=== PATIENT | male | born 1965 | race Caucasian/White ===

== ENCOUNTER 2020-10-19 01:58 | Emergency (ER) | payer SELFPAY ==
[2020-10-19 02:05] VITALS: BP 125/67; PULSE 69; RESP 18; TEMP 36.6; O2SAT 98; BMI 33.0
--- NOTE | 2020-10-19 02:27 | DI.RAD.S_ITS ---
PROCEDURE: XR KNEE RT 3V INDICATIONS: pain and swelling,unknown injury TECHNIQUE: 3 views of the knee were acquired. COMPARISON: [facility], , KNEE 3V RIGHT, 01/26/2012, 14:16. FINDINGS: Bones: No fractures or dislocations. There is mild joint space narrowing in the medial compartment. No suspicious bony lesions. Soft tissues: There is increased prepatellar soft tissue swelling. No joint effusion. No suspicious soft tissue calcifications. IMPRESSION: 1. No fracture or dislocation. 2. Mild joint space narrowing in the medial compartment. 3. Prepatellar soft tissue swelling is nonspecific and the differential includes a soft tissue contusion or bursitis. Dictated by: Nomi West M.D. on 10/19/2020 at 8:57 Approved by: Nomi West M.D. on 10/19/2020 at 9:06
--- NOTE | 2020-10-19 03:07 | ED.LOWEXIN ---
HPI - Extremity Injury (Lower) General Chief Complaint: Extremity Injury, Lower Stated Complaint: right knee pain, feels on fire Time Seen by Provider: 10/19/20 02:08 Source: patient Mode of arrival: Wheelchair Limitations: no limitations History of Present Illness HPI Narrative: 55-year-old gentleman with a history of hypothyroidism presents with acute right prepatellar knee pain. He notes that his knee was somewhat bothering him before he went to bed but it woke him from sleep with severe pain, swelling and inability find a comfortable position. He describes no fevers or chills, no redness and no specific trauma. He does note that today he was doing quite a bit of work on his knees laying in a [employer] system. He has never had similar problems previously. Related Data Previous Rx's Medication Instructions Recorded naproxen [Naprosyn] 500 mg PO BIDCC #30 tab 05/05/17 loratadine 10 mg capsule 10 mg PO DAILY #90 cap 11/09/17 levothyroxine 150 mcg PO QDAY #90 tab 06/03/18 oxycodone-acetaminophen 1 tab PO Q6H PRN 3 Days #10 tab 10/19/20 Allergies Allergy/AdvReac Type Severity Reaction Status Date / Time No Known Allergies Allergy Uncoded 09/16/17 11:52 Review of Systems Review of Systems Narrative: Remainder of complete review of systems is otherwise unremarkable except for that included in the HPI. Patient History Medical History Allergic rhinitis Hypothyroidism Smokeless tobacco use (07/12/13) Thoracic outlet syndrome Surgical History History of arthroscopy History of carpal tunnel repair Social History Smoking Status: Former smoker Smoking Status: Former smoker alcohol intake frequency: a few times a month Substance Use Type: does not use Exam Narrative Exam Narrative: General: Alert appropriate in no acute distress Respiratory: Able to speak in full sentences, no obvious respiratory distress Skin: No obvious rashes, warm and dry Neurologic: Grossly intact no obvious asymmetries or abnormalities Psych: appropriate insight and affect, cooperative Extremity: Right knee with prepatellar effusion, he is able to extend the knee to 170? and flex to 60?. There is no warmth or redness to the skin and no obvious skin breakdown. No calf tenderness knees neurovascularly intact otherwise Initial Vital Signs Initial Vital Signs: Vital Signs Temperature 98 F 10/19/20 02:05 Pulse Rate 69 10/19/20 02:05 Respiratory Rate 18 10/19/20 02:05 Blood Pressure 125/67 10/19/20 02:05 Pulse Oximetry 98 10/19/20 02:05 Course Orders Ordered: ED Orders 10/19/20 02:27 XR knee RT 3V Stat Discontinued Medications Ketorolac Tromethamine (Ketorolac 30 Mg/Ml Vial) 30 mg IM NOW ONE Stop: 10/19/20 03:05 Oxycodone/Acetaminophen (Oxycodone/Apap 5/325 Prepack) 1 bottle MISC SEEINSTR ONE Stop: 10/19/20 03:05 Vital Signs Vital signs: Vital Signs - 8 hr 10/19/20 02:05 Temperature 98 F Pulse Rate 69 Respiratory Rate 18 Blood Pressure 125/67 Pulse Oximetry 98 MDM - Extremity Injury (Lower) Imaging Data X-ray right knee: Attestation: I personally reviewed and interpreted this imaging study as follows: My Impression: No acute bony injury MDM Narrative Medical decision making narrative: 55-year-old gentleman with acute right knee pain with ligamentous stability but tenderness over the prepatellar bursa. X-ray is unremarkable. He does have a history of crawling on his knees to place a sprinkler system today. We talked about using anti-inflammatory medications, anticipated course of resolution and probable similar to increase level of pain over the next 24-48 hours. Reviewed signs and symptoms of septic arthritis, which he does not have at this time, and reasons to return to the emergency department. He is safe for home discharge at this time Discharge Plan Departure Patient Disposition: Home Clinical Impression: Bursitis, prepatellar, right Instructions: DI for Bursitis Activity Restrictions/Additional Instructions: Thank you for coming in today You do not have cellulitis or infection inside her knee. There is no broken bones and no ligamentous damage. You do have bursitis. This is affecting the bursa just on top of your knee cap and why it hurts some much to bend your knee completely or streaking your knee completely. In the emergency room your given a shot of Toradol which is similar to ibuprofen. Using 400 mg of ibuprofen (2 [id number] pills) and 1 Tylenol every 6 hours can be very helpful in controlling pain. For severe pain using to ibuprofen and 1 Percocet can be helpful. Use ice or heat to figure out which helps most with your specific pain level. You will not injury your knee by walking on it but you may find that you more comfortable with that elevated. If he noticed fevers, redness or any type of drainage this would be very unusual and should be re-evaluated. Prescriptions: New oxycodone-acetaminophen 5-325 mg tablet 1 tab PO Q6H PRN (Reason: pain) 3 Days Qty: 10 RF: 0 No Action naproxen [Naprosyn] 500 MG tablet 500 mg PO BIDCC Qty: 30 RF: 0 levothyroxine 150 mcg tablet 150 mcg PO QDAY Qty: 90 RF: 0 loratadine 10 mg capsule 10 mg PO DAILY Qty: 90 RF: 1 Referrals: Irina Naranjo DO [Primary Care Provider] -
[2020-10-19] MEDS: KETOROLAC 30 MG/ML VIAL IM (03:22)
[2020-10-19] MEDS: OXYCODONE/APAP 5/325 PREPACK 1 BOTTLE MISC (03:22)
[2020-10-19 03:27] VITALS: BP 131/61; PULSE 72; RESP 18; O2SAT 98
== END 2020-10-19 03:38 | disposition home or self-care (01) ==
PROVIDERS: Emergency Provider Emergency Medicine; Family Provider Family Medicine; PCP Family Medicine
DX: M70.41 Prepatellar bursitis, right knee (principal)
CPT/HCPCS: 73562; 96372; 99283; J1885

== ENCOUNTER 2022-07-31 19:05 | Emergency (ER) | payer OTHER, SELFPAY ==
[2022-07-31 19:20] VITALS: BP 154/90; PULSE 85; RESP 20; TEMP 36.4; O2SAT 99; BMI 34.4
--- NOTE | 2022-07-31 21:21 | ED.NAVMDI ---
HPI - Nausea/Vomiting/Diarrhea General Chief complaint: Nausea/Vomiting/Diarrhea Stated complaint: vomiting, bloody stool, abd pain Time Seen by Provider: 07/31/22 21:17 Source: patient Mode of arrival: Ambulatory Limitations: no limitations History of Present Illness HPI Narrative: Patient is a 57-year-old male who is here for evaluation of approximately 12 hours nausea vomiting and diarrhea. Is also having abdominal pain related to the vomiting diarrhea. No recent travel. No recent antibiotics. Has not tried anything for the symptoms. He states that he thinks that his stool has some blood in but is not exactly sure. He is not having any fevers. He also states last couple times he is vomit he thought that there was blood in his vomitus as well. Related Data Previous Rx's Medication Instructions Recorded naproxen 500 mg tablet (Naprosyn) 500 mg PO BIDCC #30 tabs 05/05/17 loratadine 10 mg capsule 10 mg PO DAILY #90 caps 11/09/17 levothyroxine 150 mcg tablet 150 mcg PO QDAY #90 tabs 06/03/18 Allergies Allergy/AdvReac Type Severity Reaction Status Date / Time No Known Allergies Allergy Uncoded 07/31/22 19:26 Review of Systems Constitutional Constitutional: Reports system reviewed and no additional complaints, except as documented Respiratory Respiratory: Reports system reviewed and no additional complaints, except as documented Gastrointestinal Gastrointestinal: Reports system reviewed and no additional complaints, except as documented Musculoskeletal Musculoskeletal: Reports system reviewed and no additional complaints, except as documented Hematologic/Lymphatic On Anticoagulants: No Patient History Medical History Allergic rhinitis Hypothyroidism Smokeless tobacco use (07/12/13) Thoracic outlet syndrome Surgical History History of arthroscopy History of carpal tunnel repair Social History Smoking Status: Former smoker Smoking Status: Former smoker alcohol intake frequency: a few times a month Substance Use Type: does not use Exam Initial Vital Signs Initial Vital Signs: Vital Signs Temperature 97.5 F L 07/31/22 19:20 Pulse Rate 85 07/31/22 19:20 Respiratory Rate 20 07/31/22 19:20 Blood Pressure 154/90 H 07/31/22 19:20 Pulse Oximetry 99 02/23/23 19:20 Oxygen Delivery Method 07/31/22 19:20 HENMT Head: normal to inspection and normocephalic Resp Effort & Inspection: normal respiratory effort Cardio Rate: regular rate GI Inspection: normal to inspection Course Orders Ordered: Discontinued Medications Ondansetron HCl (Ondansetron 4 Mg Odt) 4 mg SL NOW ONE Stop: 07/31/22 21:22 Last Admin: 07/31/22 21:29 Dose: 4 mg Documented By: LES Ondansetron HCl (Ondansetron 4 Mg Odt Prepack) 1 bottle MISC SEEINSTR ONE Stop: 07/31/22 22:22 Last Admin: 07/31/22 22:31 Dose: 1 bottle Documented By: LES Vital Signs Vital signs: Vital Signs - 8 hr 07/31/22 19:20 07/31/22 22:27 Temperature 97.5 F L Pulse Rate 85 66 Respiratory Rate 20 18 Blood Pressure 154/90 H 117/74 Pulse Oximetry 99 95 Oxygen Delivery Method Room Air Room Air MDM - Nausea/Vomiting/Diarrhea MDM Narrative Medical decision making narrative: Normal vital signs, benign exam, after Zofran patient tolerated oral intake. I suspect that the potential blood in his vomitus is Ina-Nye. No indication for any radiologic studies. Patient is not tachycardic. No indication for antibiotics. He was given return precautions. He expressed understanding and agreement Discharge Plan Departure Patient Disposition: Home Clinical Impression: Nausea vomiting and diarrhea Instructions: Diarrhea, Nausea and Vomiting-Adult Activity Restrictions/Additional Instructions: I do recommend you use the nausea medication as needed. Increase your fluid intake by drinking small amounts at a time and advancing it as tolerated. Also recommend a bland diet that you can advance as tolerated. Return to the emergency department for new or worsening symptoms. Prescriptions: No Action naproxen [Naprosyn] 500 MG tablet 500 mg PO BIDCC Qty: 30 0RF levothyroxine 150 mcg tablet 150 mcg PO QDAY Qty: 90 0RF loratadine 10 mg capsule 10 mg PO DAILY Qty: 90 1RF Referrals: Irina Naranjo DO [Primary Care Provider] - Stand Alone Forms: Patient Portal/API
[2022-07-31] MEDS: ONDANSETRON 4 MG ODT SL (21:29)
[2022-07-31 22:27] VITALS: BP 117/74; PULSE 66; RESP 18; O2SAT 95
[2022-07-31] MEDS: ONDANSETRON 4 MG ODT PREPACK 1 BOTTLE MISC (22:31)
--- NOTE | 2022-07-31 22:35 | PC.NURSE ---
During my assessment pt reports feeling nauseous for past few hours. states has thrown up 5 times. denied any difficulty with bowel movements.
== END 2022-07-31 22:38 | disposition home or self-care (01) ==
PROVIDERS: Emergency Provider Emergency Medicine; Family Provider Family Medicine; PCP Family Medicine
DX: R11.2 Nausea with vomiting, unspecified (principal); R19.7 Diarrhea, unspecified
CPT/HCPCS: 99283

== ENCOUNTER 2022-11-16 22:03 | Emergency (ER) | payer OTHER, SELFPAY ==
[2022-11-16 22:18] VITALS: BP 122/88; PULSE 59; RESP 16; TEMP 36.3; O2SAT 98; BMI 32.5
[2022-11-17] VITALS (7 sets, daily range): BP systolic 131–155; BP diastolic 73–90; PULSE 49–56; RESP 15–23; O2SAT 98–100
[2022-11-17 00:36] LABS: Add Manual Diff / Slide Review NO; Basophils Absolute Auto 100 /uL (0-100); Basophils Percent Auto 0.5 % (0-2); Eosinophils Absolute Auto 200 /uL (0-450); Eosinophils Percent Auto 1.1 % (2-4); Hematocrit 44.5 % (41-53); Hemoglobin 15.5 g/dL (13.5-17.5); Lymphocytes Absolute Auto 2200 /uL (1100-4500); Lymphocytes Percent Auto 14.7 % (25-40); Mean Corpuscular HGB Conc 34.7 % (30-36); Mean Corpuscular Volume 94.9 fL (80-100); Monocytes Absolute Auto 700 /uL (0-900); Monocytes Percent Auto 4.7 % (3-14); Neutrophils Absolute Auto 11800 /uL (1500-7000); Platelet Count 228 X10^3/uL (150-400); Red Blood Cell Count 4.69 X10^6/uL (4.5-5.9); Red Cell Distribution Width 12.9 % (11.6-14.8); White Blood Cell Count 14.9 X10^3/uL (4.5-11.0)
--- NOTE | 2022-11-17 00:37 | PC.NURSE ---
Pt reports he is aware of his lower heart rate and says I've been seeing a doctor about it but no official diagnosis yet.
[2022-11-17 00:44] LABS: Alanine Aminotransferase 32 IU/L (<50); Albumin 4.8 g/dL (3.5-5.0); Albumin Globulin Ratio 1.5 (1.0-2.8); BUN Creatinine Ratio 23.8 (6-22); Bilirubin Total 2.1 mg/dL (0.2-1.3); Blood Urea Nitrogen 19 mg/dL (9-20); Calcium 9.1 mg/dL (8.4-10.2); Carbon Dioxide 24 mmol/L (22-32); Chloride 104 mmol/L (98-107); Estimated Glomerular Filt Rate > 60 mL/min (>60); Globulin 3.2 g/dL (1.7-4.1); Glucose 110 mg/dL (70-100); Lipase 114 U/L (23-300); Sodium 138 mmol/L (137-145)
[2022-11-17 00:46] LABS: HEMOLYSIS 76 (0-50); Potassium 4.6 mmol/L (3.4-5.1)
[2022-11-17 00:47] LABS: Alkaline Phosphatase 70 U/L (38-126); Aspartate Aminotransferase 32 IU/L (17-59)
--- NOTE | 2022-11-17 01:13 | DI.CT.S_ITS ---
PROCEDURE: CT ABDOMEN PELVIS W CON INDICATIONS: abdominal pain/diarrhea TECHNIQUE: After the administration of IV contrast, axial sections were acquired from the lung bases to the pubic symphysis. Coronal and sagittal reformats were performed. For radiation dose reduction, the following was used: automated exposure control, adjustment of mA and/or kV according to patient size. COMPARISON: None. FINDINGS: Image quality: Excellent. Lung bases: Unremarkable. Heart: Heart is normal in size. ABDOMEN: Liver: There is hypoattenuation of the liver consistent with fatty infiltration. Posteriorly within the right hepatic lobe involving segments 6 and 7, there is a lobulated partially exophytic mass measuring 4.0 x 3.7 cm in transverse dimension with a few nodular discontinue foci of hypervascular peripheral enhancement. Gallbladder: Within normal limits without calcified gallstones. Biliary ducts: No biliary ductal dilatation. Pancreas: Unremarkable. Spleen: Normal in size. Adrenal Glands: No adrenal nodules. Kidneys and Ureters: No hydronephrosis. Stomach and Bowel: Stomach, small bowel loops, and colon are normal in caliber and wall thickness. The appendix is normal. There are scattered air-fluid levels throughout the colon. Colonic diverticulosis is present without acute diverticulitis. Peritoneum: No abnormal intraperitoneal fluid. No free air. Ventral Wall: No hernia. Abdominal Nodes: No retroperitoneal or mesenteric adenopathy by size criteria. Vessels: Aorta and inferior vena cava are normal in size. PELVIS: Pelvic Organs: Unremarkable. Bladder: Unremarkable. Pelvic Nodes: No enlarged lymph nodes. Miscellaneous: No inguinal hernias are seen. Bones: Visualized osseous structures demonstrate no suspicious focal lesions. IMPRESSION: 1. Scattered air-fluid levels throughout the colon likely representing a gastroenteritis. 2. Colonic diverticulosis without acute diverticulitis. 3. Partially exophytic mass in the posterior right hepatic lobe medially with eccentric nodular discontinuous hypervascular peripheral enhancement. The findings are suggestive of a cavernous hemangioma but the lesion is incompletely characterized on the current study. Further evaluation may be obtained with a nonemergent liver protocol MRI. Dictated by: Nomi West M.D. on 11/17/2022 at 2:16 Approved by: Nomi West M.D. on 11/17/2022 at 2:25
--- NOTE | 2022-11-17 01:13 | ED.ABDPAIN ---
HPI - Abdominal Pain General Chief Complaint: Abdominal Pain Stated Complaint: Abd pain, thinks food poisioning Time Seen by Provider: 11/17/22 01:07 Source: patient Mode of arrival: Ambulatory History of Present Illness HPI narrative: Patient here for watery diarrhea and lower abdominal cramping and pain. has similar symptoms but not as severe as him. He thinks he is had food poisoning. Symptoms started at 8:00 p.m. tonight. At noon today they were at a log show, they ate vendor food, fish and chicken and potato salad. 8 hours later patient started having symptoms. Denies any chest pain or back pain. Nausea but no vomiting. Related Data Previous Rx's Medication Instructions Recorded naproxen 500 mg tablet (Naprosyn) 500 mg PO BIDCC #30 tabs 05/05/17 loratadine 10 mg capsule 10 mg PO DAILY #90 caps 11/09/17 levothyroxine 150 mcg tablet 150 mcg PO QDAY #90 tabs 06/03/18 Allergies Allergy/AdvReac Type Severity Reaction Status Date / Time No Known Drug Allergies Allergy Verified 11/16/22 22:17 Review of Systems Review of Systems Narrative: GENERAL: negative chills, fatigue, malaise, fever, sweats. HEENT: negative sinus pain, ear pain, sore throat RESPIRATORY: negative dyspnea, cough CARDIOVASCULAR: negative chest pain, palpitations GASTROINTESTINAL: Positive nausea, negative vomiting, positive diarrhea and abdominal pain : negative dysuria, frequency, hematuria MUSCULOSKELETAL: negative muscle or bony pain SKIN: negative rash, skin lesions NEUROLOGIC: negative weakness, numbness ROS Unobtainable: All systems reviewed & are unremarkable except as noted in HPI and below Patient History Medical History Allergic rhinitis Hypothyroidism Smokeless tobacco use (07/12/13) Thoracic outlet syndrome Surgical History History of arthroscopy History of carpal tunnel repair Social History Smoking Status: Former smoker Smoking Status: Former smoker alcohol intake frequency: a few times a month Substance Use Type: does not use Exam Narrative Exam Narrative: GENERAL: in no distress, not toxic not dyspneic HEAD: Normocephalic. EYES: Pupils equal round ENT: Mucous membranes moist. NECK: Trachea midline. CARDIOVASCULAR: Regular rate and rhythm without murmurs RESPIRATORY: Clear to auscultation. Breath sounds equal bilaterally. No wheezes, rales, or rhonchi. GASTROINTESTINAL: Abdomen soft, there is reproducible diffuse lower bilateral abdominal tenderness but no peritoneal signs no pain out of proportion to exam. Bowel sounds are present. EXTREMITIES: No gross deformities. BACK: No flank tenderness. NEURO: AOx4. SKIN: Warm and dry PSYCH: Not anxious, is cooperative Initial Vital Signs Initial Vital Signs: Vital Signs Temperature 97.3 F L 11/16/22 22:18 Pulse Rate 59 L 11/16/22 22:18 Respiratory Rate 16 11/16/22 22:18 Blood Pressure 122/88 11/16/22 22:18 Pulse Oximetry 98 11/16/22 22:18 Oxygen Delivery Method Room Air 11/16/22 22:18 Course Orders Ordered: Discontinued Medications Sodium Chloride (Normal Saline 0.9%) 1,000 mls @ 1,000 mls/hr IV BOLUS ONE Stop: 11/17/22 02:11 Last Infusion: 11/17/22 03:21 Dose: 0 mls/hr Documented By: Admin: 11/17/22 01:49 Dose: 1,000 mls/hr Documented By: LES Sodium Chloride (Normal Saline 0.9%) 1,000 mls @ 1,000 mls/hr IV BOLUS ONE Stop: 11/17/22 03:21 Last Infusion: 11/17/22 04:43 Dose: 0 mls/hr Documented By: Admin: 11/17/22 03:21 Dose: 1,000 mls/hr Documented By: LES Vital Signs Vital signs: Vital Signs - 8 hr 11/16/22 22:18 11/17/22 00:12 11/17/22 00:29 Temperature 97.3 F L Pulse Rate 59 L 50 L Respiratory Rate 16 Blood Pressure 122/88 150/90 H Pulse Oximetry 98 99 Oxygen Delivery Method Room Air 11/17/22 00:29 11/17/22 00:30 11/17/22 00:30 Temperature Pulse Rate 51 L 50 L Respiratory Rate 17 16 Blood Pressure 141/84 H Pulse Oximetry 100 100 Oxygen Delivery Method 11/17/22 01:00 11/17/22 01:00 11/17/22 01:36 Temperature Pulse Rate 49 L 56 L Respiratory Rate 19 15 Blood Pressure 155/85 H Pulse Oximetry 99 98 Oxygen Delivery Method Room Air 11/17/22 01:55 11/17/22 02:26 Temperature Pulse Rate 53 L Respiratory Rate 23 Blood Pressure 131/73 Pulse Oximetry 100 Oxygen Delivery Method Room Air MDM - Abdominal Pain Lab Data 11/17/22 00:21 11/17/22 00:21 Labs: Lab Results 11/17/22 11/17/22 11/17/22 Range/Units 00:21 00:21 01:20 WBC 14.9 H (4.5-11.0) X10^3/uL RBC 4.69 (4.5-5.9) X10^6/uL Hgb 15.5 (13.5-17.5) g/dL Hct 44.5 (41-53) % MCV 94.9 (80-100) fL MCH 33.0 (26-34) PG MCHC 34.7 (30-36) % RDW 12.9 (11.6-14.8) % Plt Count 228 (150-400) X10^3/uL Neut % (Auto) 79.0 H (50-75) % Lymph % (Auto) 14.7 L (25-40) % Forest % (Auto) 4.7 (3-14) % Eos % (Auto) 1.1 L (2-4) % Baso % (Auto) 0.5 (0-2) % Neut # (Auto) 33494 H (5071-2105) /uL Lymph # (Auto) 2200 (1275-2697) /uL Forest # (Auto) 700 (0-900) /uL Eos # (Auto) 200 (0-450) /uL Baso # (Auto) 100 (0-100) /uL Sodium 138 (137-145) mmol/L Potassium 4.6 (3.4-5.1) mmol/L Chloride 104 (98-107) mmol/L Carbon Dioxide 24 (22-32) mmol/L BUN 19 (9-20) mg/dL Creatinine 0.80 (0.66-1.25) mg/dL Estimated GFR > 60 (>60) mL/min BUN/Creatinine Ratio 23.8 H (6-22) Glucose 110 H (70-100) mg/dL Calcium 9.1 (8.4-10.2) mg/dL Total Bilirubin 2.1 H (0.2-1.3) mg/dL AST 32 (17-59) IU/L ALT 32 (<50) IU/L Alkaline Phosphatase 70 (38-126) U/L Total Protein 8.0 (6.3-8.2) g/dL Albumin 4.8 (3.5-5.0) g/dL Globulin 3.2 (1.7-4.1) g/dL Albumin/Globulin Ratio 1.5 (1.0-2.8) Lipase 114 (23-300) U/L Urine Color Yellow Urine Appearance Clear Urine pH 5.5 (4.5-8.0) Ur Specific Zachary >=1.030 H (1.000-1.035) Urine Protein Trace H (Negative) Urine Glucose (UA) Negative (Negative) g/dL Urine Ketones Negative (NEGATIVE) Urine Occult Blood 2+ H (Negative) Urine Nitrate Negative (Negative) Urine Bilirubin Negative (NEGATIVE) Ur Bilirubin Confirm Urine Urobilinogen 0.2 (0.2) E.U./dL Ur Leukocyte Esterase Negative (NEGATIVE) Urine RBC None seen (0-5/HPF) Urine WBC 0-1/hpf (0-5/HPF) Ur Squamous Epith Cells 0-1 /hpf (0-5/HPF) Urine Bacteria None seen (None) Hyaline Casts 0-1/lpf (None) Urine Mucus 2+ H (Negative) Ur Culture Indicated? Cult not indicated Stl C. cayetanensis PCR (Not Detect) Stool Rotavirus (PCR) (Not Detect) Stool Adenovirus (PCR) (Not Detect) Stool Astrovirus (PCR) (Not Detect) Stool Cryptosporidium PCR (Not Detect) Stl E.coli Shiga Tox PCR (Not Detect) St Sh/Enteroin Ecoli PCR (Not Detect) Stool E coli O157 PCR Stl Enterotoxigenic E PCR (Not Detect) Stool EPEC (PCR) (Not Detect) Stl E. histolytica PCR (Not Detect) Stool Giardia Lamblia PCR (Not Detect) Stool Sapovirus (PCR) (Not Detect) Stl P. shigelloides PCR (Not Detect) St Y.enterocolitica PCR (Not Detect) Stool Vibrio (PCR) (Not Detect) Stl Vibrio cholerae PCR (Not Detect) Stl Enteroaggr Ecoli PCR (Not Detect) Stl Norovirus GI/GII PCR (Not Detect) Campylobacter (PCR) (Not Detect) C. difficile Tox (PCR) (Not Detect) Salmonella (PCR) (Not Detect) 11/17/22 11/17/22 Range/Units 01:20 02:00 WBC (4.5-11.0) X10^3/uL RBC (4.5-5.9) X10^6/uL Hgb (13.5-17.5) g/dL Hct (41-53) % MCV (80-100) fL MCH (26-34) PG MCHC (30-36) % RDW (11.6-14.8) % Plt Count (150-400) X10^3/uL Neut % (Auto) (50-75) % Lymph % (Auto) (25-40) % Forest % (Auto) (3-14) % Eos % (Auto) (2-4) % Baso % (Auto) (0-2) % Neut # (Auto) (0048-7424) /uL Lymph # (Auto) (2839-0326) /uL Forest # (Auto) (0-900) /uL Eos # (Auto) (0-450) /uL Baso # (Auto) (0-100) /uL Sodium (137-145) mmol/L Potassium (3.4-5.1) mmol/L Chloride (98-107) mmol/L Carbon Dioxide (22-32) mmol/L BUN (9-20) mg/dL Creatinine (0.66-1.25) mg/dL Estimated GFR (>60) mL/min BUN/Creatinine Ratio (6-22) Glucose (70-100) mg/dL Calcium (8.4-10.2) mg/dL Total Bilirubin (0.2-1.3) mg/dL AST (17-59) IU/L ALT (<50) IU/L Alkaline Phosphatase (38-126) U/L Total Protein (6.3-8.2) g/dL Albumin (3.5-5.0) g/dL Globulin (1.7-4.1) g/dL Albumin/Globulin Ratio (1.0-2.8) Lipase (23-300) U/L Urine Color Urine Appearance Urine pH (4.5-8.0) Ur Specific Zachary (1.000-1.035) Urine Protein (Negative) Urine Glucose (UA) (Negative) g/dL Urine Ketones (NEGATIVE) Urine Occult Blood (Negative) Urine Nitrate (Negative) Urine Bilirubin (NEGATIVE) Ur Bilirubin Confirm Cancelled Urine Urobilinogen (0.2) E.U./dL Ur Leukocyte Esterase (NEGATIVE) Urine RBC (0-5/HPF) Urine WBC (0-5/HPF) Ur Squamous Epith Cells (0-5/HPF) Urine Bacteria (None) Hyaline Casts (None) Urine Mucus (Negative) Ur Culture Indicated? Stl C. cayetanensis PCR Not detected (Not Detect) Stool Rotavirus (PCR) Not detected (Not Detect) Stool Adenovirus (PCR) Not detected (Not Detect) Stool Astrovirus (PCR) Not detected (Not Detect) Stool Cryptosporidium PCR Not detected (Not Detect) Stl E.coli Shiga Tox PCR Not detected (Not Detect) St Sh/Enteroin Ecoli PCR Not detected (Not Detect) Stool E coli O157 PCR Not Reportable Stl Enterotoxigenic E PCR Not detected (Not Detect) Stool EPEC (PCR) Not detected (Not Detect) Stl E. histolytica PCR Not detected (Not Detect) Stool Giardia Lamblia PCR Not detected (Not Detect) Stool Sapovirus (PCR) Not detected (Not Detect) Stl P. shigelloides PCR Not detected (Not Detect) St Y.enterocolitica PCR Not detected (Not Detect) Stool Vibrio (PCR) Not detected (Not Detect) Stl Vibrio cholerae PCR Not detected (Not Detect) Stl Enteroaggr Ecoli PCR Not detected (Not Detect) Stl Norovirus GI/GII PCR Not detected (Not Detect) Campylobacter (PCR) Not detected (Not Detect) C. difficile Tox (PCR) Not detected (Not Detect) Salmonella (PCR) Not detected (Not Detect) Point of care testing: Urine Dip Bedside Urine Glucose Negative Bedside Urine Bilirubin + 1 Bedside Urine Ketone - Negative Urine Specific Zachary 1.030 Bedside Urine Occult Blood ++ Bedside Urine pH 5.5 Bedside Urine Protein +/- 15 Bedside Urine Urobilinogen 1+ 2mg Bedside Urine Nitrite - Negative Bedside Urine Leukocytes - Negative Esterase Imaging Data CT scan - abdomen/pelvis: Radiologist's Impression: [address] [address] [address] Scan Report Signed Patient: Markell Crandall MR#: [id number] : 1965 Acct:[id number] Age/Sex: 57 / M Date of Service: 11/17/22 Loc: ED Accession Number: [id number] ?? Procedure: CT abdomen pelvis w con Ordering Provider: Hunter Humphrey MD PROCEDURE:? CT ABDOMEN PELVIS W CON ? INDICATIONS:? abdominal pain/diarrhea ? TECHNIQUE:? After the administration of IV contrast, axial sections were acquired from the lung bases to the pubic symphysis.? Coronal and sagittal reformats were performed.? For radiation dose reduction, the following was used:? automated exposure control, adjustment of mA and/or kV according to patient size. ? COMPARISON:? None. ? FINDINGS:? Image quality:? Excellent.? ? Lung bases:? Unremarkable.? ? Heart:? Heart is normal in size. ? ? ABDOMEN: Liver:? There is hypoattenuation of the liver consistent with fatty infiltration.? Posteriorly within the right hepatic lobe involving segments 6 and 7, there is a lobulated partially exophytic mass measuring 4.0 x 3.7 cm in transverse dimension with a few nodular discontinue foci of hypervascular peripheral enhancement. Gallbladder:? Within normal limits without calcified gallstones.? ? Biliary ducts:? No biliary ductal dilatation.? ? Pancreas:? Unremarkable.? ? Spleen:? Normal in size.? ? Adrenal Glands:? No adrenal nodules.? ? Kidneys and Ureters:? No hydronephrosis.? ? ? Stomach and Bowel:? Stomach, small bowel loops, and colon are normal in caliber and wall thickness.? The appendix is normal.? There are scattered air-fluid levels throughout the colon.? Colonic diverticulosis is present without acute diverticulitis. Peritoneum:? No abnormal intraperitoneal fluid.? No free air.? ? Ventral Wall: ? No hernia.? Abdominal Nodes:? No retroperitoneal or mesenteric adenopathy by size criteria.? Vessels:? Aorta and inferior vena cava are normal in size.? ? PELVIS: Pelvic Organs:? Unremarkable.? ? Bladder:? Unremarkable.? ? Pelvic Nodes: No enlarged lymph nodes.? Miscellaneous: No inguinal hernias are seen. ? ? ? Bones:? Visualized osseous structures demonstrate no suspicious focal lesions.? ? IMPRESSION:? ? 1. Scattered air-fluid levels throughout the colon likely representing a gastroenteritis. ? 2. Colonic diverticulosis without acute diverticulitis. ? 3. Partially exophytic mass in the posterior right hepatic lobe medially with eccentric nodular discontinuous hypervascular peripheral enhancement.? The findings are suggestive of a cavernous hemangioma but the lesion is incompletely characterized on the current study.? Further evaluation may be obtained with a nonemergent liver protocol MRI.? ? ? Dictated by: Nomi West M.D. on 11/17/2022 at 2:16 ? ? Approved by: Nomi West M.D. on 11/17/2022 at 2:25 ? MDM Narrative Medical decision making narrative: Patient here for watery diarrhea and lower abdominal cramping and pain. has similar symptoms but not as severe as him. He thinks he is had food poisoning. Symptoms started at 8:00 p.m. tonight. At noon today they were at a log show, they ate vendor food, fish and chicken and potato salad. 8 hours later patient started having symptoms. Denies any chest pain or back pain. Nausea but no vomiting. After history and exam CBC CMP lipase normal saline GI panel CT abdomen pelvis IV fluids EKG [facility] CC: Abdominal pain/diarrhea Complicating co-morbidities: has similar symptoms Data collected from: Patient Medical records reviewed: No recent visits for this complaint Differential considered: Includes but not limited to food poisoning diverticulosis diverticulitis appendicitis pancreatitis colitis Exam documented above, pertinent findings include: Mild lower abdominal tenderness Lab Test results independently reviewed as above. Pertinent findings: WBC 14.9 AST 32 ALT 32 lipase 114 Urinalysis specific gravity greater than 1.03, negative leukocyte esterase negative nitrate GI panel negative Independently reviewed EKG sinus bradycardia rate 50 otherwise normal EKG no ST elevation or depression Imaging studies independently reviewed: CT abdomen pelvis findings likely gastroenteritis Consultations: None indicated at this time Treatments: Normal saline Re-evaluations: 4:30 a.m. patient resting comfortably. Reviewed results with patient. Exam and laboratory studies and imaging are reassuring. Likely is due to food poisoning. This is self-limiting and will take time to improve. Hydration instructions provided for him any agrees for discharge home. Feeling much better now with IV hydration. Discussion: Appropriate for discharge home. Exam and laboratory studies and imaging are reassuring. Patient likely did have food poisoning. This is supportive and self-limiting. Return precautions reviewed with him. He desires discharge home. has the same symptoms, she ate the same foods Diagnosis: Food poisoning Discharge Plan Departure Patient Disposition: Home Clinical Impression: Food poisoning Instructions: DI for Food Poisoning Activity Restrictions/Additional Instructions: ER likely experiencing food poisoning. This is usually self-limiting. No antibiotics are indicated. Keep well hydrated. You must replaced fluids lost with the diarrhea. Drink as much fluids as possible. Return if worse if any questions or concerns. See your family doctor in a week for re-evaluation Prescriptions: No Action naproxen [Naprosyn] 500 MG tablet 500 mg PO BIDCC Qty: 30 0RF levothyroxine 150 mcg tablet 150 mcg PO QDAY Qty: 90 0RF loratadine 10 mg capsule 10 mg PO DAILY Qty: 90 1RF Referrals: Irina Naranjo DO [Primary Care Provider] - Stand Alone Forms: Patient Portal/API
[2022-11-17 01:37] LABS: Appearance Urine UA CLEAR; Bilirubin Urine UA NEGATIVE (NEGATIVE); Color Urine UA YELLOW; Glucose Urine UA NEGATIVE (Negative); Ketones Urine UA NEGATIVE (NEGATIVE); Leukocyte Esterase Urine UA NEGATIVE (NEGATIVE); Nitrite Urine UA NEGATIVE (Negative); Occult Blood Urine UA 2+ (Negative); Protein Urine UA TRACE (Negative); Specific Gravity Urine UA >=1.030 (1.000-1.035); Urobilinogen Urine UA 0.2 E.U./dL (0.2); pH Urine UA 5.5 (4.5-8.0)
[2022-11-17] MEDS: SODIUM CHLORIDE 0.9% 1,000 ML 1000 ML IV ×2 (01:49→03:21)
[2022-11-17 01:51] LABS: Bacteria Urine None Seen; Hyaline Casts Urine 0-1/LPF; Mucus Urine 2+ (Negative); RBC Urine None Seen (0-5/HPF); Squamous Epithelial Cell Urine 0-1 /HPF (0-5/HPF)
[2022-11-17 01:52] LABS: Culture Indicated Urine Cult Not Indicated; WBC Urine 0-1/HPF (0-5/HPF)
[2022-11-17 03:40] LABS: Adenovirus F 40/41 Not Detected (Not Detect); Astrovirus Not Detected (Not Detect); Campylobacter Not Detected (Not Detect); Clostridium difficile toxin AB Not Detected (Not Detect); Cryptosporidium Not Detected (Not Detect); Cyclospora cayetanensis Not Detected (Not Detect); Entamoeba histolytica Not Detected (Not Detect); Enteroaggregative E.coli Not Detected (Not Detect); Enteropathogenic E.coli Not Detected (Not Detect); Enterotoxigenic E.coli It/st Not Detected (Not Detect); Giardia lamblia Not Detected (Not Detect); Norovirus GI/GII Not Detected (Not Detect); Plesiomonsa shigelloides Not Detected (Not Detect); Rotavirus A Not Detected (Not Detect); Salmonella Not Detected (Not Detect); Sapovirus Not Detected (Not Detect); Shiga-like toxin-prod E.coli Not Detected (Not Detect); Shigella/Enteroinvasive E.coli Not Detected (Not Detect); Vibrio Not Detected (Not Detect); Vibrio cholerae Not Detected (Not Detect); Yersinia enterocolitica Not Detected (Not Detect)
== END 2022-11-17 04:51 | disposition home or self-care (01) ==
PROVIDERS: Emergency Provider Emergency Medicine; Family Provider Family Medicine; PCP Family Medicine
DX: A05.9 Bacterial foodborne intoxication, unspecified (principal); R19.7 Diarrhea, unspecified; R10.30 Lower abdominal pain, unspecified
CPT/HCPCS: 36415; 74177; 80053; 81001; 81003; 83690; 85025; 87507; 93005; 96360; 96361; 99284; Q9967

== ENCOUNTER 2024-08-16 00:12 | Emergency (ER) | payer BC, SELFPAY ==
[2024-08-16] VITALS (8 sets, daily range): BP systolic 110–133; BP diastolic 60–83; PULSE 63–75; RESP 18–22; TEMP 36.5; O2SAT 94–97; BMI 32.1
--- NOTE | 2024-08-16 00:22 | DI.RAD.S_ITS ---
PROCEDURE: XR CHEST 1V INDICATIONS: Shortness of breath TECHNIQUE: One view of the chest was acquired. COMPARISON: [facility], , CHEST 1 VIEW, 09/23/2016, 14:45. [facility], , CHEST 1 VIEW, 07/25/2014, 3:47. FINDINGS AND IMPRESSION: Low lung volumes. No airspace consolidation or pleural effusion on this single view study. Normal heart size. No aggressive appearing osseous abnormality. Partially seen cervical fusion hardware. Dictated by: Nils Edwards M.D. on 08/16/2024 at 0:40 Approved by: Nils Edwards M.D. on 08/16/2024 at 0:41
--- NOTE | 2024-08-16 00:26 | ED.SOB ---
HPI - SOB/Dyspnea General Chief Complaint: Shortness of Breath/Dyspnea Stated Complaint: bark in chest for 1 month Time Seen by Provider: 08/16/24 00:25 Source: patient, RN notes reviewed and old records reviewed Mode of arrival: Ambulatory Limitations: no limitations History of Present Illness HPI Narrative: 59-year-old male history of hypothyroidism, dyslipidemia, patient states he has had barky cough in his chest for about a month to 6 weeks. Notes he has had this on and off in the past as well but has been much stronger more persistent this week. He did have anterior cervical fusion about 6 weeks ago but states he was better immediately after that and then worsened couple weeks later. No fevers he was aware of he has had some nasal drainage but no new cold cough or congestion symptoms. Occasionally has a little bit of chest discomfort but no current chest pain. He does feel short of breath. States this evening his cough became much more intense describes it as dry and barking but has had 1 episode of posttussive emesis. Denies any hemoptysis. Denies any hoarseness or change to his voice. Denies abdominal back or flank pain. No other nausea or vomiting. No issues with bowel movements or urination. No new swelling in his extremities. Former smoker does use smokeless tobacco regularly, states occasional alcohol, denies any recreational drugs. Patient has been using an albuterol inhaler that received which has occasionally been helpful. Related Data Previous Rx's Medication Instructions Recorded naproxen 500 mg tablet (Naprosyn) 500 mg PO BIDCC #30 tabs 05/05/17 loratadine 10 mg capsule 10 mg PO DAILY #90 caps 11/09/17 levothyroxine 150 mcg tablet 150 mcg PO QDAY #90 tabs 06/03/18 prednisone 10 mg tablets in a dose See Rx Instructions PO .COMPLEX 08/16/24 pack #21 ea Allergies Allergy/AdvReac Type Severity Reaction Status Date / Time No Known Drug Allergies Allergy Verified 11/16/22 22:17 Review of Systems Review of Systems ROS Unobtainable: All systems reviewed & are unremarkable except as noted in HPI and below Patient History Medical History Allergic rhinitis Hypothyroidism Thoracic outlet syndrome Smokeless tobacco use (07/12/13) Surgical History History of arthroscopy History of carpal tunnel repair Social History Smoking Status: Former smoker Smoking Status: Former smoker tobacco type: smokeless tobacco alcohol intake frequency: a few times a month Exam Narrative Exam Narrative: GENERAL: Alert and oriented x three, male in [id number] distress HEENT: Head normocephalic, atraumatic, EOMI, pupils reactive, face symmetric, moist mucous membranes NECK: Supple, full range of motion, patient has healed incision on his anterior neck that is clean dry and intact without any signs of infection. CARDIOVASCULAR: Regular rate and rhythm without murmurs, rubs or gallops. RESPIRATORY: Breath sounds equal bilaterally, bilateral expiratory wheeze upper and lower, no rhonchi, no crackles. No tachypnea accessory muscle use. Patient has frequent cough. ABDOMEN: Soft, nontender. Normoactive bowel sounds all 4 quadrants. No guarding or rebound, rigidity, no mass : No CVA tenderness EXTREMITIES: Normal range of motion, no clubbing or edema. Neurovascularly intact NEUROLOGICAL: Cranial nerves II through XII grossly intact. Moving all extremities SKIN: Warm, dry, no petechiae, no rashes or lesions. Initial Vital Signs Initial Vital Signs: Vital Signs Temperature 97.7 F 08/16/24 00:16 Pulse Rate 75 08/16/24 00:16 Respiratory Rate 22 08/16/24 00:16 Blood Pressure 133/83 08/16/24 00:16 Pulse Oximetry 97 08/16/24 00:16 Oxygen Delivery Method Room Air 08/16/24 00:16 Course Orders Ordered: ED Orders 08/16/24 00:22 XR chest 1V Stat EKG-12 Lead Stat Measure peak expiratory flow ONCE RT Consult Eval and Treat NOW 08/16/24 00:39 Complete Blood Count AUTO DIFF Stat Comprehensive Metabolic Panel Stat Covid-19 + FLU A/B + RSV - PCR Stat Lactate (Lactic Acid) Stat NT-proBNP (BNP-Adult 18+) Stat Prothrombin Time INR Stat Troponin I Stat Discontinued Medications Albuterol/Ipratropium (Albuterol/Ipratropium 3 Ml Ampul) 6 ml INH NOW ONE Stop: 08/16/24 00:32 Last Admin: 08/16/24 00:37 Dose: 6 ml Documented By: MARJORIE Methylprednisolone (Methylprednisolone 125 Mg/2 Ml Vial) 125 mg IV NOW ONE Stop: 08/16/24 00:41 Last Admin: 08/16/24 00:53 Dose: 125 mg Documented By: VERÓNICA Ondansetron HCl (Ondansetron 4 Mg/2 Ml Inj) 4 mg IV NOW ONE Stop: 08/16/24 01:01 Last Admin: 08/16/24 02:07 Dose: Not Given Documented By: VERÓNICA Vital Signs Vital signs: Vital Signs - 8 hr 08/16/24 00:16 08/16/24 00:23 08/16/24 00:30 Temperature 97.7 F Pulse Rate 75 71 66 Respiratory Rate 22 20 Blood Pressure 133/83 Pulse Oximetry 97 96 95 Oxygen Delivery Method Room Air Room Air Oxygen Flow Rate Fraction of Inspired Oxygen 08/16/24 00:37 08/16/24 00:43 08/16/24 00:43 Temperature Pulse Rate 74 64 Respiratory Rate 22 21 Blood Pressure 121/75 Pulse Oximetry 96 96 Oxygen Delivery Method Room Air Room Air Oxygen Flow Rate 0 Fraction of Inspired Oxygen 21 08/16/24 01:00 08/16/24 01:00 08/16/24 01:30 Temperature Pulse Rate 71 Respiratory Rate 19 Blood Pressure 130/69 110/65 Pulse Oximetry 96 Oxygen Delivery Method Room Air Oxygen Flow Rate Fraction of Inspired Oxygen 08/16/24 01:30 08/16/24 02:00 08/16/24 02:00 Temperature Pulse Rate 63 66 Respiratory Rate 18 Blood Pressure 115/60 Pulse Oximetry 94 95 Oxygen Delivery Method Room Air Oxygen Flow Rate Fraction of Inspired Oxygen MDM - SOB/Dyspnea Lab Data 08/16/24 00:39 08/16/24 00:39 Labs: Lab Results 08/16/24 Range/Units 00:39 WBC 10.6 (4.5-11.0) X10^3/uL RBC 4.73 (4.5-5.9) X10^6/uL Hgb 15.5 (13.5-17.5) g/dL Hct 43.8 (41-53) % MCV 92.7 (80-100) fL MCH 32.7 (26-34) PG MCHC 35.3 (30-36) % RDW 13.5 (11.6-14.8) % Plt Count 229 (150-400) X10^3/uL Neut % (Auto) 56.9 (50-75) % Lymph % (Auto) 25.1 (25-40) % [place] % (Auto) 6.2 (3-14) % Eos % (Auto) 10.5 H (2-4) % Baso % (Auto) 1.3 (0-2) % Neut # (Auto) 6000 (6712-3512) /uL Lymph # (Auto) 2700 (1654-0326) /uL [place] # (Auto) 700 (0-900) /uL Eos # (Auto) 1100 H (0-450) /uL Baso # (Auto) 100 (0-100) /uL PT 10.9 (9.4-12.5) SECONDS INR 1.0 (0.9-1.3) Sodium 141 (137-145) mmol/L Potassium 4.0 (3.4-5.1) mmol/L Chloride 105 (98-107) mmol/L Carbon Dioxide 24 (22-32) mmol/L BUN 14 (9-20) mg/dL Creatinine 0.84 (0.66-1.25) mg/dL Estimated GFR > 60 (>60) mL/min BUN/Creatinine Ratio 16.7 (6-22) Glucose 94 (70-100) mg/dL Lactate 0.9 (0.7-2.1) mmol/L Calcium 9.4 (8.4-10.2) mg/dL Total Bilirubin 1.6 H (0.2-1.3) mg/dL AST 35 (17-59) IU/L ALT 35 (<50) IU/L Alkaline Phosphatase 114 (38-126) U/L Troponin I < 0.012 (0.01-0.034) ng/mL NT-Pro-B Natriuret Pep < 20 (<125) pg/mL Total Protein 7.8 (6.3-8.2) g/dL Albumin 4.7 (3.5-5.0) g/dL Globulin 3.1 (1.7-4.1) g/dL Albumin/Globulin Ratio 1.5 (1.0-2.8) SARS-CoV-2 (PCR) Negative (Negative) Influenza A (RT-PCR) Flu a negative (NEGATIVE) Influenza B (RT-PCR) Flu b negative (NEGATIVE) RSV (PCR) Negative (Negative) ECG Data Attestation: I personally reviewed and interpreted this ECG as follows: Interpretation: Sinus rhythm with sinus arrhythmia rate of 72 DC 144 QRS is 72 QTC of 446. No acute ST elevation depression does have little bit of motion artifact. Patient has prior from 11/17/2022 which appears similar to today. MDM Narrative Medical decision making narrative: 59-year-old male with history of tobacco use presents with complaint of barking cough for the past month to 6 weeks patient is wheezy on exam. Does not have a formal diagnosis of COPD or emphysema. Labs shows CBC with the elevated eosinophils, INR is 1 electrolytes are otherwise appropriate creatinine 0.84 with a BUN of 14 glucose is 94 bilirubin is 1.6 has been elevated at 2.1 in December 2022, LFTs are otherwise negative troponin is less than 0.012 and BNP less than 20 EKG shows sinus rhythm with sinus arrhythmia Chest x-ray, low lung volumes no airspace consolidation pleural effusion normal heart size no aggressive appearing osseous abnormality partially seen cervical fusion hardware. COVID/influenza/RSV swab is negative. Patient received DuoNebs and Solu-Medrol. On recheck 0108 patient is feeling much better, scant wheeze on exam. Patient is able to sit back fully in the bed and no longer coughing. Recheck after workup complete, patient continues to have occasional scant wheeze but otherwise clear, he continues to feel it is significantly improved. Does not have a spacer states he has plenty of albuterol at home. Will have RT set up with spacer. We will send a prescription for prednisone and discussed [id number] antihistamine and follow up with primary care. Discussed return precautions all questions answered. Discharge Plan Departure Patient Disposition: Home Clinical Impression: RAD (reactive airway disease) with wheezing Instructions: DI for Reactive Airway Disease-Adult Activity Restrictions/Additional Instructions: Follow up with the primary care. Please call for an appointment. I would recommend having an evaluation for COPD or other causes of your wheezing with your primary care physician. Take steroids until completed. Continue to use albuterol 2-4 puffs every 4 hours as needed. Use with a spacer. [facility]. I would recommend also taking loratadine or Claritin [id number] once daily. Please return if you are having new or worsening symptoms increasing chest pain or shortness of breath, wheezing, persistent cough, coughing up blood, lightheadedness or passing out, new swelling in your extremities or other new or concerning changes Prescriptions: New prednisone 10 mg tablets,dose pack See Rx Instructions .ROUTE .COMPLEX Qty: 21 0RF Rx Instructions: 6 tabs p.o. x1 day, then 5 tabs p.o. x1 day, then 4 tablets p.o. x1 day, then 3 tabs p.o. x1 day, then 2 tabs p.o. x1 day, then 1 tab p.o. x1 day No Action naproxen [Naprosyn] 500 MG tablet 500 mg PO BIDCC Qty: 30 0RF levothyroxine 150 mcg tablet 150 mcg PO QDAY Qty: 90 0RF loratadine 10 mg capsule 10 mg PO DAILY Qty: 90 1RF Referrals: Irina Naranjo DO [Primary Care Provider] - Stand Alone Forms: Patient Portal/API/Survey
--- NOTE | 2024-08-16 00:28 | EKG_ITS ---
[address] [address] Test Date: 2024-08-16 Pat Name: Markell Crandall Department: [facility] Room: Gender: Male [employer] Operator: ALEJANDRO SHAFFER : 1965 Requested By: Order Number: [id number] Reading MD: Smith Abraham Measurements Intervals [place] Rate: 72 P: 69 [place]: 144 QRS: 73 QRSD: 72 T: 50 QT: 408 QTc: 446 Interpretive Statements Normal sinus rhythm with sinus arrhythmia Electronically Signed On 08-16-2024 14:36:23 PDT by Smith Abraham
[2024-08-16] MEDS: ALBUTEROL/IPRATROPIUM 3 ML AMPUL 6 ML INH (00:37)
[2024-08-16] MEDS: methylPREDNISolone 125 MG/2 ML VIAL IV (00:53)
[2024-08-16 01:10] LABS: Add Manual Diff / Slide Review NO; Basophils Absolute Auto 100 /uL (0-100); Basophils Percent Auto 1.3 % (0-2); Eosinophils Absolute Auto 1100 /uL (0-450); Eosinophils Percent Auto 10.5 % (2-4); Hematocrit 43.8 % (41-53); Hemoglobin 15.5 g/dL (13.5-17.5); Lymphocytes Absolute Auto 2700 /uL (1100-4500); Lymphocytes Percent Auto 25.1 % (25-40); Mean Corpuscular HGB Conc 35.3 % (30-36); Mean Corpuscular Hemoglobin 32.7 PG (26-34); Mean Corpuscular Volume 92.7 fL (80-100); Monocytes Absolute Auto 700 /uL (0-900); Monocytes Percent Auto 6.2 % (3-14); Neutrophils Absolute Auto 6000 /uL (1500-7000); Neutrophils Percent Auto 56.9 % (50-75); Platelet Count 229 X10^3/uL (150-400); Red Blood Cell Count 4.73 X10^6/uL (4.5-5.9); Red Cell Distribution Width 13.5 % (11.6-14.8); White Blood Cell Count 10.6 X10^3/uL (4.5-11.0)
[2024-08-16 01:14] LABS: Prothrombin Time 10.9 SECONDS (9.4-12.5)
[2024-08-16 01:17] LABS: Lactate (Lactic Acid) 0.9 mmol/L (0.7-2.1)
[2024-08-16 01:18] LABS: Alanine Aminotransferase 35 IU/L (<50); Albumin 4.7 g/dL (3.5-5.0); Albumin Globulin Ratio 1.5 (1.0-2.8); Alkaline Phosphatase 114 U/L (38-126); Aspartate Aminotransferase 35 IU/L (17-59); BUN Creatinine Ratio 16.7 (6-22); Bilirubin Total 1.6 mg/dL (0.2-1.3); Blood Urea Nitrogen 14 mg/dL (9-20); Calcium 9.4 mg/dL (8.4-10.2); Carbon Dioxide 24 mmol/L (22-32); Chloride 105 mmol/L (98-107); Estimated Glomerular Filt Rate > 60 mL/min (>60); Globulin 3.1 g/dL (1.7-4.1); Glucose 94 mg/dL (70-100); Sodium 141 mmol/L (137-145); Total Protein 7.8 g/dL (6.3-8.2)
[2024-08-16 01:31] LABS: HEMOLYSIS < 15 (0-50); NT-proBNP (BNP-Adult 18+) < 20 pg/mL (<125); Troponin I < 0.012 ng/mL (0.01-0.034)
[2024-08-16 01:42] LABS: Influenza A - CEPHEID Flu A NEGATIVE (NEGATIVE); Influenza B - CEPHEID Flu B NEGATIVE (NEGATIVE); Respiratory Syncytial Virus Negative (Negative)
[2024-08-16 01:47] LABS: COVID-19 CEPHEID 4-PLEX PCR Negative (Negative)
== END 2024-08-16 02:26 | disposition home or self-care (01) ==
PROVIDERS: Emergency Provider Emergency Medicine; Family Provider Family Medicine; PCP Family Medicine
DX: J45.909 Unspecified asthma, uncomplicated (principal); R07.9 Chest pain, unspecified; Z87.891 Personal history of nicotine dependence; I49.8 Other specified cardiac arrhythmias
CPT/HCPCS: 0241U; 36415; 71045; 80053; 83605; 83880; 84484; 85025; 85610; 93005; 94640; 96374; 99284; J2919